=== PATIENT | male | born 1950 | race Caucasian/White ===

== ENCOUNTER 2017-05-25 08:37 | Day surgery (SDC) | payer MEDICARE, OTHER ==
[2017-05-25] MEDS ORDERED: ONDANSETRON HCL INJ/PF 4 MG/2 ML SDV ONE (09:14)
[2017-05-25] MEDS ORDERED: NALOXONE HCL INJ/PF 0.4 MG/1 ML SDV ONE (09:14)
[2017-05-25] MEDS ORDERED: DIPHENHYDRAMINE HCL 50 MG/ML VIAL ONE (09:14)
[2017-05-25] MEDS ORDERED: GLUCAGON,HUMAN RECOMB 1 MG INJ ONE (09:15)
[2017-05-25] MEDS ORDERED: EPINEPHRINE INJ 1 MG/10 ML DISP.SYRIN ONE (09:15)
[2017-05-25] MEDS ORDERED: FLUMAZENIL INJ 0.5 MG/5 ML VIAL ONE (09:15)
[2017-05-25] MEDS: MIDAZOLAM 2 MG/2 ML INJ ONE ×2 (09:26→09:32)
[2017-05-25] MEDS: FENTANYL CITRATE INJ/PF 100 MCG/2 ML AMPUL ONE ×2 (09:28→09:30)
--- NOTE | 2017-05-25 09:47 | Operative Report ---
Operative Report DATE OF SURGERY: 05/25/17 Operative Report: The risks, benefits and alternatives of the procedure including risks of bleeding, perforation requiring surgery are explained to the patient detail and informed consent was obtained. Patient was taken back to the endoscopy suite and placed in the left, lateral decubital position. Timeout was called. Conscious sedation medications administered. A rectal examination was done which did not reveal any masses, tears or fissures. An Olympus videoscope was inserted into the patient's rectum. Scope was then carefully advanced all the way to the cecum. The cecum was identified by the usual anatomical landmarks including the ileocecal valve as well as the appendiceal office. Photodocumentation is obtained. The scope was then sequentially pulled back via the rest segments of the colon including the ascending colon, hepatic flexure, transverse colon, splenic flexure, descending colon finding to the rectosigmoid portions of the colon. Retroflexion maneuver was performed. Prep is good. PREOPERATIVE DIAGNOSIS: Colorectal cancer screening. POSTOPERATIVE DIAGNOSIS: Small Polyp noted at the rectosigmoid junction removed via snare polypectomy and retrieved. Diverticulosis. Internal hemorrhoids OPERATION: Colonoscopy with snare polypectomy SURGEON: HOLLIE MCKENZIE ANESTHESIA: Moderate Sedation - 4 mg of Versed, 100 mcg of fentanyl. Conscious sedation monitoring time 30 minutes. TISSUE REMOVED OR ALTERED: Specimen retrieved as noted above COMPLICATIONS: None. ESTIMATED BLOOD LOSS: None. INTRAOPERATIVE FINDINGS: As described above. PROCEDURE: Patient tolerated the procedure well. No immediate postprocedure complications are noted. Patient discharged in good condition. Discharge date 05/25/2017. Discharge diet: Regular. Discharge activity: Regular. 2-3 week follow-up to discuss findings. Patient is instructed to call the office or proceed to the emergency room should there be any further problems or questions. We will wait on biopsies. 3-5 year surveillance.
[2017-05-25 10:54] VITALS: BP 108/62
== END 2017-05-25 10:50 | disposition home or self-care (01) ==
LOC: END 08:37
PROVIDERS: ATTEND Internal Medicine Gastroenterology
PROC: 0DBP8ZX Excision of Rectum, Via Natural or Artificial Opening Endoscopic, Diagnostic (ICD-10-PCS; 2017-05-25)
PROC: 0DBN8ZX Excision of Sigmoid Colon, Via Natural or Artificial Opening Endoscopic, Diagnostic (ICD-10-PCS; principal; 2017-05-25 09:00)
DX: Z12.11 Encounter for screening for malignant neoplasm of colon (principal); D12.7 Benign neoplasm of rectosigmoid junction; K57.30 Diverticulosis of large intestine without perforation or abscess without bleeding; K64.8 Other hemorrhoids; Z79.899 Other long term (current) drug therapy
CPT/HCPCS: 45385; 88305 ×2; J2250; J3010; J0171; J1200; J1610; J2310; J2405; J3490

== ENCOUNTER → 2017-12-29 | Outpatient (CLI) | payer MEDICARE ==
[2017-12-29 11:15] LABS: ALANINE AMINOTRANSFERASE 52 U/L (21-72); ALBUMIN 4.2 g/dL (3.5-5.0); ALKALINE PHOSPHATASE 79 U/L (38-126); ANION GAP 10 (5-19); ASPARTATE AMINO TRANSFERASE 30 U/L (17-59); BILIRUBIN,DIRECT 0.3 mg/dL (0.0-0.4); BILIRUBIN,TOTAL 0.6 mg/dL (0.2-1.3); BLOOD UREA NITROGEN 17 mg/dL (7-20); CARBON DIOXIDE 26 mmol/L (22-30); CHLORIDE 104 mmol/L (98-107); CHOLESTEROL 155.47 mg/dL (0-200); GLUCOSE 143 mg/dL (75-110); POTASSIUM 5.2 mmol/L (3.6-5.0); SODIUM 140.3 mmol/L (137-145); TOTAL PROTEIN 7.2 g/dL (6.3-8.2); TRIGLYCERIDES 259 mg/dL (<150)
[2017-12-29 11:25] LABS: DIRECT LDL 89 mg/dL (<100)
[2017-12-29 11:29] LABS: VLDL CHOLESTEROL 51.8 mg/dL (10-31)
== END ==
LOC: OD 09:59
PROVIDERS: ATTEND Internal Medicine Cardiovascular Disease
DX: E78.5 Hyperlipidemia, unspecified (principal); N18.3 Chronic kidney disease, stage 3 (moderate); Z79.899 Other long term (current) drug therapy
CPT/HCPCS: 36415; 80048; 80061; 80076

== ENCOUNTER → 2018-01-26 | Outpatient (CLI) | payer MEDICARE ==
--- NOTE | 2018-01-26 09:53 | RADIOLOGY REPORT (SQ) ---
EXAM DESCRIPTION: U/S ABDOMEN LIMITED W/O DOP COMPLETED DATE/TIME: 01/26/2018 9:44 am REASON FOR STUDY: R94.5 ABNORMAL RESULTS OF LIVER FUNCTION STUDIES E78.2 MIXED HYPERLIPIDEMIA R94.5 ABNORMAL RESULTS OF LIVER FUNCTION STUDIES COMPARISON: None. TECHNIQUE: Dynamic and static grayscale images acquired of the abdomen and recorded on PACS. Additio nal selected color Doppler and spectral images recorded. LIMITATIONS: None. FINDINGS: PANCREAS: No masses. No peripancreatic edema or fluid collections. LIVER: Echotexture is coarse with increased echogenicity consistent with fatty infiltration. LIVER VASCULATURE: Normal directional flow of the main portal vein and hepatic veins. GALLBLADDER: Gallstone(s). No pericholecystic fluid. No wall thickening. ULTRASOUND-DETECTED EARL'S SIGN: Negative. INTRAHEPATIC DUCTS AND COMMON DUCT: CBD and intrahepatic ducts normal caliber. No filling defects. INFERIOR VENA CAVA: Normal flow. AORTA: No aneurysm. RIGHT KIDNEY: Normal size. Normal echogenicity. No solid or suspicious masses. No hydronephrosis. No calcifications. PERITONEAL AND RIGHT PLEURAL SPACE: No ascites or effusions. OTHER: No other significant finding. IMPRESSION: GALLSTONES. FATTY INFILTRATION OF THE LIVER. OTHERWISE NORMAL RIGHT UPPER QUADRANT ULT RASOUND. TECHNICAL DOCUMENTATION: JOB ID: [id number] [employer]- All Rights Reserved Reading location - IP/workstation name: [email or web address]
== END ==
LOC: RAD 10:54
PROVIDERS: ATTEND Internal Medicine Cardiovascular Disease
DX: K80.80 Other cholelithiasis without obstruction (principal); K76.0 Fatty (change of) liver, not elsewhere classified
CPT/HCPCS: 76705

== ENCOUNTER → 2018-05-11 | Outpatient (CLI) | payer MEDICARE, OTHER ==
[2018-05-11 09:32] LABS: HEMOGLOBIN 15.5 g/dL (13.5-17.0); MEAN CORPUSCULAR HGB CONC 34.5 g/dL (32.0-36.0); MEAN CORPUSCULAR VOLUME 87 fl (80-97); PLATELET COUNT 207 10^3/uL (150-450); RED BLOOD COUNT 5.17 10^6/uL (4.35-5.55); RED CELL DISTRIBUTION WIDTH 15.1 % (11.5-14.0)
[2018-05-11 10:05] LABS: ALANINE AMINOTRANSFERASE 32 U/L (21-72); ALBUMIN 3.9 g/dL (3.5-5.0); ALKALINE PHOSPHATASE 83 U/L (38-126); ANION GAP 11 (5-19); ASPARTATE AMINO TRANSFERASE 20 U/L (17-59); BILIRUBIN,DIRECT 0.2 mg/dL (0.0-0.4); BILIRUBIN,TOTAL 0.6 mg/dL (0.2-1.3); BLOOD UREA NITROGEN 19 mg/dL (7-20); CALCIUM 9.8 mg/dL (8.4-10.2); CARBON DIOXIDE 26 mmol/L (22-30); CHLORIDE 106 mmol/L (98-107); CHOLESTEROL 114.94 mg/dL (0-200); GLUCOSE 108 mg/dL (75-110); POTASSIUM 4.5 mmol/L (3.6-5.0); SODIUM 142.8 mmol/L (137-145); TOTAL PROTEIN 6.8 g/dL (6.3-8.2); TRIGLYCERIDES 151 mg/dL (<150); URIC ACID 6.7 mg/dL (3.5-8.5)
[2018-05-11 10:11] LABS: FREE T4 (FREE THYROXINE) 1.25 ng/dL (0.78-2.19)
[2018-05-11 10:16] LABS: DIRECT LDL 59 mg/dL (<100)
[2018-05-11 10:23] LABS: VLDL CHOLESTEROL 30.2 mg/dL (10-31)
[2018-05-11 10:25] LABS: THYROID STIMULATING HORMONE 1.61 uIU/mL (0.47-4.68)
== END ==
LOC: OD 08:21
PROVIDERS: ATTEND Internal Medicine Cardiovascular Disease
DX: I10 Essential (primary) hypertension (principal); R07.9 Chest pain, unspecified; R94.5 Abnormal results of liver function studies; E78.2 Mixed hyperlipidemia; Z79.899 Other long term (current) drug therapy
CPT/HCPCS: 36415; 80048; 80061; 80076; 82010; 83735; 84439; 84443; 84550; 85027; 86141

== ENCOUNTER → 2018-08-12 | Outpatient (CLI) | payer MEDICARE, OTHER ==
[2018-08-12 11:06] LABS: ALANINE AMINOTRANSFERASE 24 U/L (21-72); ALBUMIN 4.3 g/dL (3.5-5.0); ALKALINE PHOSPHATASE 83 U/L (38-126); ANION GAP 13 (5-19); ASPARTATE AMINO TRANSFERASE 21 U/L (17-59); BILIRUBIN,DIRECT 0.3 mg/dL (0.0-0.4); BILIRUBIN,TOTAL 0.9 mg/dL (0.2-1.3); BLOOD UREA NITROGEN 18 mg/dL (7-20); CALCIUM 9.9 mg/dL (8.4-10.2); CARBON DIOXIDE 24 mmol/L (22-30); CHLORIDE 104 mmol/L (98-107); CHOLESTEROL 127.11 mg/dL (0-200); GLUCOSE 112 mg/dL (75-110); POTASSIUM 4.9 mmol/L (3.6-5.0); SODIUM 141.2 mmol/L (137-145); TOTAL PROTEIN 7.2 g/dL (6.3-8.2); TRIGLYCERIDES 141 mg/dL (<150)
[2018-08-12 11:17] LABS: DIRECT LDL 88 mg/dL (<100)
== END ==
LOC: OD 09:34
PROVIDERS: ATTEND Internal Medicine Cardiovascular Disease
DX: E78.2 Mixed hyperlipidemia (principal); E11.65 Type 2 diabetes mellitus with hyperglycemia; N18.3 Chronic kidney disease, stage 3 (moderate); Z79.899 Other long term (current) drug therapy
CPT/HCPCS: 36415; 80048; 80061; 80076

== ENCOUNTER → 2018-11-07 | Outpatient (CLI) | payer MEDICARE, OTHER ==
[2018-11-07 10:00] LABS: ALANINE AMINOTRANSFERASE 19 U/L (21-72); ALBUMIN 4.1 g/dL (3.5-5.0); ALKALINE PHOSPHATASE 82 U/L (38-126); ANION GAP 10 (5-19); ASPARTATE AMINO TRANSFERASE 17 U/L (17-59); BILIRUBIN,DIRECT 0.2 mg/dL (0.0-0.4); BILIRUBIN,TOTAL 0.5 mg/dL (0.2-1.3); BLOOD UREA NITROGEN 21 mg/dL (7-20); CARBON DIOXIDE 26 mmol/L (22-30); CHLORIDE 106 mmol/L (98-107); CHOLESTEROL 98.79 mg/dL (0-200); GLUCOSE 117 mg/dL (75-110); POTASSIUM 5.3 mmol/L (3.6-5.0); SODIUM 142.1 mmol/L (137-145); TOTAL PROTEIN 6.6 g/dL (6.3-8.2); TRIGLYCERIDES 136 mg/dL (<150)
[2018-11-07 10:11] LABS: DIRECT LDL 60 mg/dL (<100)
== END ==
LOC: OD 08:37
PROVIDERS: ATTEND Internal Medicine Cardiovascular Disease
DX: E11.65 Type 2 diabetes mellitus with hyperglycemia (principal); E78.2 Mixed hyperlipidemia
CPT/HCPCS: 36415; 80048; 80061; 80076

== ENCOUNTER → 2018-11-08 | Outpatient (CLI) | payer MEDICARE, OTHER ==
[2018-11-08 17:42] LABS: ANION GAP 9 (5-19); BLOOD UREA NITROGEN 24 mg/dL (7-20); CALCIUM 10.4 mg/dL (8.4-10.2); CARBON DIOXIDE 27 mmol/L (22-30); CHLORIDE 108 mmol/L (98-107); GLUCOSE 116 mg/dL (75-110); POTASSIUM 5.1 mmol/L (3.6-5.0); SODIUM 143.6 mmol/L (137-145)
== END ==
LOC: LAB 16:32
PROVIDERS: ATTEND Physician Assistant
DX: E87.5 Hyperkalemia (principal)
CPT/HCPCS: 36415; 80048

== ENCOUNTER → 2018-12-01 | Outpatient (CLI) | payer MEDICARE, OTHER ==
[2018-12-01 09:22] LABS: ANION GAP 10 (5-19); BLOOD UREA NITROGEN 20 mg/dL (7-20); CALCIUM 10.2 mg/dL (8.4-10.2); CARBON DIOXIDE 26 mmol/L (22-30); CHLORIDE 107 mmol/L (98-107); GLUCOSE 128 mg/dL (75-110); POTASSIUM 4.6 mmol/L (3.6-5.0); SODIUM 143.1 mmol/L (137-145)
== END ==
LOC: LAB 08:50
PROVIDERS: ATTEND Internal Medicine Cardiovascular Disease
DX: E87.5 Hyperkalemia (principal)
CPT/HCPCS: 36415; 80048

== ENCOUNTER → 2019-04-25 | Outpatient (CLI) | payer MEDICARE, OTHER ==
[2019-04-25 09:39] LABS: ANION GAP 9 (5-19); BLOOD UREA NITROGEN 18 mg/dL (7-20); CALCIUM 9.5 mg/dL (8.4-10.2); CARBON DIOXIDE 26 mmol/L (22-30); CHLORIDE 107 mmol/L (98-107); GLUCOSE 121 mg/dL (75-110); POTASSIUM 4.6 mmol/L (3.6-5.0)
== END ==
LOC: LAB 08:47
PROVIDERS: ATTEND Internal Medicine Cardiovascular Disease
DX: N18.3 Chronic kidney disease, stage 3 (moderate) (principal)
CPT/HCPCS: 36415; 80048

== ENCOUNTER → 2020-07-28 | Outpatient (CLI) | payer MEDICARE, OTHER ==
[2020-07-28 09:32] LABS: ALBUMIN 4.1 g/dL (3.5-5.0); ALKALINE PHOSPHATASE 81 U/L (38-126); ASPARTATE AMINO TRANSFERASE 21 U/L (17-59); BILIRUBIN,DIRECT 0.2 mg/dL (0.0-0.4); BILIRUBIN,TOTAL 0.8 mg/dL (0.2-1.3); CHOLESTEROL 110.62 mg/dL (0-200); TOTAL PROTEIN 6.2 g/dL (6.3-8.2); TRIGLYCERIDES 180 mg/dL (<150)
[2020-07-28 09:43] LABS: DIRECT LDL 61 mg/dL (<100)
[2020-07-28 16:51] LABS: ANION GAP 12 (5-19); BLOOD UREA NITROGEN 20 mg/dL (7-20); CALCIUM 9.8 mg/dL (8.4-10.2); CARBON DIOXIDE 21 mmol/L (22-30); CHLORIDE 106 mmol/L (98-107); GLUCOSE 138 mg/dL (75-110); POTASSIUM 4.6 mmol/L (3.6-5.0)
== END ==
LOC: OD 08:25
PROVIDERS: ATTEND Internal Medicine Cardiovascular Disease
DX: E78.2 Mixed hyperlipidemia (principal)
CPT/HCPCS: 36415; 80048; 80061; 80076

== ENCOUNTER 2020-08-13 13:09 | Emergency (ER) | payer MEDICARE, OTHER ==
--- NOTE | 2020-08-13 13:38 | ER Document Report ---
ED Medical Screen (RME) - General Chief Complaint: Chest Pain Stated Complaint: CHEST PAIN Time Seen by Provider: 08/13/20 13:35 Primary Care Provider: NICK HASTINGS MD [Primary Care Provider] - Follow up as needed Mode of Arrival: Ambulatory Information source: Patient Notes: HPI; 70-year-old male past medical history significant for hypertension presents emergency room complaining of shortness of breath with chest pain that has been intermittent for the past 2 weeks. Also complains of some lightheadedness. States shortness of breath is worse with exertion. Negative Covid test 1 week ago. States he saw his primary care physician a week ago who told him to just monitor his blood pressure. States he did have an EKG in the office but he does not know the results. Patient states that he noticed that his pulse has been running in the 30-40 range over the past week. Denies any other cardiac history. Denies any recent travel. PE: Alert and oriented x3. Mild distress noted. Lungs: Clear to auscultation without rales, rhonchi, wheezes. Heart bradycardic without murmurs, rubs, gallops. I have greeted and performed a rapid initial assessment of this patient. A comprehensive ED assessment and evaluation of the patient, analysis of test results and completion of the medical decision making process will be conducted by additional ED providers. I have specifically instructed the patient or family members with the patient to immediately return to any nursing staff should anything change in the patient's condition or with their chief complaint. TRAVEL OUTSIDE OF THE [place] IN LAST 30 DAYS: No - Related Data Allergies/Adverse Reactions: No Known Allergies Allergy (Verified 05/25/17 08:57) Past Medical History - Past Medical History Cardiac Medical History: Reports: Hx Hypertension Denies: Hx Coronary Artery Disease, Hx Heart Attack Pulmonary Medical History: Denies: Hx Asthma, Hx Bronchitis, Hx COPD, Hx Pneumonia Neurological Medical History: Denies: Hx Cerebrovascular Accident, Hx Seizures Musculoskeltal Medical History: Denies Hx Arthritis - Immunizations Hx Diphtheria, Pertussis, Tetanus Vaccination: - UNSURE Doctor's Discharge - Discharge Referrals: NICK HASTINGS MD [Primary Care Provider] - Follow up as needed
--- NOTE | 2020-08-13 14:15 | RADIOLOGY REPORT (SQ) ---
EXAM DESCRIPTION: CHEST SINGLE VIEW IMAGES COMPLETED DATE/TIME: 08/13/2020 1:54 pm REASON FOR STUDY: chest pain COMPARISON: None. EXAM PARAMETERS: NUMBER OF VIEWS: One view. TECHNIQUE: Single frontal radiographic view of the chest acquired. RADIATION DOSE: NA LIMITATIONS: None. FINDINGS: LUNGS AND PLEURA: No opacities, masses or pneumothorax. No pleural effusion. MEDIASTINUM AND HILAR STRUCTURES: No masses. Contour normal. HEART AND VASCULAR STRUCTURES: Heart normal in size. Normal vasculature. BONES: No acute findings. HARDWARE: None in the chest. OTHER: No other significant finding. IMPRESSION: NO ACUTE RADIOGRAPHIC FINDING IN THE CHEST. TECHNICAL DOCUMENTATION: JOB ID: [id number] [employer]- All Rights Reserved Reading location - IP/workstation name: [email or web address]
[2020-08-13] MEDS ORDERED: ASPIRIN 325 MG TABLET PO ONE (14:23)
--- NOTE | 2020-08-13 14:23 | ER Document Report ---
ED Cardiac - General Chief Complaint: Chest Pain Stated Complaint: CHEST PAIN Time Seen by Provider: 08/13/20 13:35 Primary Care Provider: NICK HASTINGS MD [Primary Care Provider] - Follow up as needed Mode of Arrival: Ambulatory Notes: HPI: 70-year-old male who presents today stating for 1 to 2 weeks he states minimal lightheadedness. He states it is mostly when he is standing up from a seated position or going up steps. Patient does state some intermittent left- sided 2 out of 10 maximum chest "discomfort" without radiation, aggravating relieving factors. No nausea, vomiting, shortness of breath, cough, fevers, calf pain or leg swelling. No history of coronary artery disease. Patient did see a margarine churn operator on 10 days ago, Dr. Hastings. ROS: See HPI All other review of systems reviewed and otherwise negative Reviewed vital signs and nursing note as charted by RN. PHYSICAL EXAM: CONSTITUTIONAL: Alert and oriented and responds appropriately to questions. Well-appearing; well-nourished HEAD: Normocephalic; atraumatic EYES: PERRL; Conjunctivae clear, sclerae non-icteric CARD: Bradycardic but regular; no murmurs; symmetric distal pulses RESP: Normal chest excursion without splinting or tachypnea; breath sounds clear and equal bilaterally ABD/GI: Normal bowel sounds; non-distended; soft, non-tender BACK: The back appears normal and is non-tender to palpation EXT: Normal ROM in all joints; non-tender to palpation; no edema SKIN: No acute lesions noted NEURO: CN 2-12 intact; 5/5 bilateral upper and lower extremity strength with sensation intact to light touch PSYCH: The patient's mood and manner are appropriate. Grooming and personal hygiene are appropriate. TRAVEL OUTSIDE OF THE [place] IN LAST 30 DAYS: No - Related Data Allergies/Adverse Reactions: No Known Allergies Allergy (Verified 08/13/20 13:52) Past Medical History - General Information source: Patient - Social History Smoking Status: Unknown if Ever Smoked Family History: Reviewed & Not Pertinent - Past Medical History Cardiac Medical History: Reports: Hx Hypertension Denies: Hx Coronary Artery Disease, Hx Heart Attack Pulmonary Medical History: Denies: Hx Asthma, Hx Bronchitis, Hx COPD, Hx Pneumonia Neurological Medical History: Denies: Hx Cerebrovascular Accident, Hx Seizures Musculoskeletal Medical History: Denies Hx Arthritis - Immunizations Hx Diphtheria, Pertussis, Tetanus Vaccination: - UNSURE Physical Exam - Vital signs Vitals: Temp Pulse Resp BP Pulse Ox 98.6 F 55 L 22 H 156/58 H 97 08/13/20 13:34 08/13/20 13:34 08/13/20 13:34 08/13/20 13:34 08/13/20 13:34 Course - Re-evaluation Re-evalutation: EKG shows a heart rate of 33, sinus bradycardia with a type II block. Is difficult to assess whether with Mobitz type I or type II given that it is due to 1. Right bundle branch block. No old EKG to compare. Given the history and physical with a stable blood pressure, we will place the patient on the monitor and place pads to the chest. We will provide aspirin. Awaiting cardiology consult callback as well as troponin levels. I will provide aspirin. No shortness of breath, calf pain, or leg swelling. I do believe PE and dissection to be unlikely. 08/13/20 14:23 I did speak to the margarine churn operator senior professional services consultant. We do not do pacemakers at this location and he does agree that the patient needs to be transferred. I will call cardiac connections at [facility] when labs have returned. 08/13/20 15:03 X-ray of the chest, EKG, and troponin as recorded. I have called over to [facility] for transfer. - Vital Signs Vital signs: Temp Pulse Resp BP Pulse Ox 98.6 F 55 L 16 156/69 H 100 08/13/20 13:34 08/13/20 13:34 08/13/20 15:00 08/13/20 14:59 08/13/20 15:00 - Laboratory Result Diagrams: 08/13/20 14:00 08/13/20 14:00 Laboratory results interpreted by me: 08/13/20 08/13/20 14:00 14:00 RDW 15.4 H Chloride 108 H Carbon Dioxide 21 L BUN 24 H Creatinine 1.35 H Est GFR (MDRD) Non-Af 53 L Glucose 116 H Creatine Kinase 31 L Discharge - Discharge Clinical Impression: Second degree heart block by electrocardiogram (ECG), Lightheadedness, Precordial chest pain Condition: Fair Disposition: Replaced By [facility] Referrals: NICK HASTINGS MD [Primary Care Provider] - Follow up as needed
[2020-08-13 14:25] LABS: ABSOLUTE BASOPHILS # (AUTO) 0.1 10^3/uL (0.0-0.2); ABSOLUTE EOSINOPHILS # (AUTO) 0.1 10^3/uL (0.0-0.6); ABSOLUTE LYMPHOCYTES (AUTO) 2.1 10^3/uL (0.5-4.7); ABSOLUTE MONOCYTES (AUTO) 0.7 10^3/uL (0.1-1.4); ABSOLUTE NEUT (AUTO) 7.4 10^3/uL (1.7-8.2); BASOPHILS % (AUTO) 0.6 % (0-2); EOSINOPHILS % (AUTO) 1.1 % (0-6); HEMATOCRIT 45.8 % (37.9-51.0); LYMPHOCYTES % (AUTO) 19.8 % (13-45); MEAN CORPUSCULAR HEMOGLOBIN 30.3 pg (27.0-33.4); MEAN CORPUSCULAR VOLUME 87 fl (80-97); PLATELET COUNT 176 10^3/uL (150-450); RED BLOOD COUNT 5.29 10^6/uL (4.35-5.55); RED CELL DISTRIBUTION WIDTH 15.4 % (11.5-14.0); SEGMENTED NEUTROPHILS % (AUTO) 71.5 % (42-78); TOTAL CELLS COUNTED % (AUTO) 100 %; WHITE BLOOD COUNT 10.4 10^3/uL (4.0-10.5)
[2020-08-13 14:42] LABS: ALBUMIN 4.4 g/dL (3.5-5.0); ALKALINE PHOSPHATASE 85 U/L (38-126); ANION GAP 13 (5-19); ASPARTATE AMINO TRANSFERASE 20 U/L (17-59); BILIRUBIN,TOTAL 0.6 mg/dL (0.2-1.3); BLOOD UREA NITROGEN 24 mg/dL (7-20); CARBON DIOXIDE 21 mmol/L (22-30); CHLORIDE 108 mmol/L (98-107); CREATINE KINASE 31 U/L (55-170); GLUCOSE 116 mg/dL (75-110); POTASSIUM 4.5 mmol/L (3.6-5.0); TOTAL PROTEIN 7.4 g/dL (6.3-8.2)
[2020-08-13 14:54] LABS: CREATINE KINASE MB 1.61 ng/mL (<4.55)
[2020-08-13 14:55] LABS: TROPONIN I < 0.012 ng/mL
--- NOTE | 2020-08-13 17:49 | EKG REPORT ---
SEVERITY:- ABNORMAL ECG - HIGH GRADE AV BLOCK 3:1 RIGHT BUNDLE BRANCH BLOCK : Confirmed by: Alexandre Pena 13-Aug-2020 17:47:52
--- NOTE | 2020-08-14 00:56 | ER Document Report ---
Doctor's Note Notes: 08/14/20 00:54 Called into evaluate patient. Evidently patient is awaiting transfer to [facility] for pacemaker placement. He has a second-degree heart block. Monitor showed patient's heart rate to be 28, blood pressure 144/55. I went into evaluate the patient. He has had some chest pain that has been stable for the last few weeks, not better or worse. He denies any dizziness. He states that he has been having heart rates this low intermittently for some time. I explained to the patient that I wanted to keep pacer pads in place. I did not want him to stand unassisted at any point during his stay in the ER. He voiced understanding. He was given the call button, told to bring out if any new symptoms occurred. He voiced understanding. We did reach out to [facility], who state they are still awaiting a bed assignment.
[2020-08-14] MEDS ORDERED: NORMAL SALINE 1000 ML 1,000 ML IV ONE (01:08)
[2020-08-14 01:46] LABS: ALBUMIN 3.5 g/dL (3.5-5.0); ALKALINE PHOSPHATASE 71 U/L (38-126); ANION GAP 11 (5-19); ASPARTATE AMINO TRANSFERASE 18 U/L (17-59); BILIRUBIN,TOTAL 0.9 mg/dL (0.2-1.3); BLOOD UREA NITROGEN 21 mg/dL (7-20); CALCIUM 9.2 mg/dL (8.4-10.2); CARBON DIOXIDE 17 mmol/L (22-30); CHLORIDE 111 mmol/L (98-107); GLUCOSE 103 mg/dL (75-110); POTASSIUM 4.1 mmol/L (3.6-5.0); TOTAL PROTEIN 6.2 g/dL (6.3-8.2)
[2020-08-14 08:39] VITALS: BP 143/55
--- NOTE | 2020-08-14 10:25 | ER Document Report ---
Doctor's Note Notes: 08/14/20 10:23 This MD was just informed by nursing that the [facility] helicopter crew will be landing momentarily to transfer the patient to [facility]. This MD went into the patient's room to check on the patient prior to transfer. Patient is awake alert and oriented x3, pleasant appreciative of care at this facility, appears to be in no acute distress and appears stable for transfer.
--- OUTSIDE RECORDS SUMMARY | 2020-08-15 14:40 | XMS REPORT ---
:1950 [facility] [address] [place] [address] Care Team Providers Name Role Phone Mirta Attending Clinician Unavailable Allergies, Adverse Reactions, Alerts This patient has no known allergies or adverse reactions. Medications Ordered Filled Start Stop Current Ordering Indication Dosage Frequency Signature Comments Components Medication Medication Date Date Medication? Clinician (SIG) Name Name lisinopril No lisinopril 20 mg 20 mg tablet tablet metformin No metformin ER 500 mg ER 500 mg tablet,exte tablet,ext nded ended release 24 release 24 hr hr atorvastati No atorvastat n 80 mg in 80 mg tablet tablet lisinopril No lisinopril 10 mg 10 mg tablet tablet Problems This patient has no known problems. Procedures Procedure Date / Time Performed Performing Clinician Chery freitas OFFICE/OUTPATIENT VISIT EST 2017-06-09 16:15:00 Results Test Description Test Time Test Comments Text Results Atomic Results Result Comments SARS coronavirus 2 RNA [Presence] in Respiratory speci men by 2020-07-31 00:00:00 GWEN with probe detection Test Item Value Reference Range Comments SARS coronavirus 2 RNA [Presence] in Respiratory specimen no t detected not detected by GWEN with probe detection (test code = 94495-0) first test? (test code = first test?) unknown employed in healthcare? (test code = employed in unknown healthcare?) symptomatic defined by cdc? (test code = symptomatic yes defined by cdc?) Illness or injury onset date and time (test code = 07/27/2020 88022-9) Patient was hospitalized because of this condition (test no code = 67430-0) ICU? (test code = ICU?) no resident in congregate care setting? 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 Family Medicine [address] [facility] Medicine HEATING [employer]ING [employer] ENGINEER-C: [address] [address] [place] [address], Ph. 2017-06-09 2017-06-09 Outpatient [facility] Michael freitas [id number] 16:15:00 16:15:00 Children [id number] s [id number] and [id number] [facility] Immunizations Ordered Immunization Filled Immunization Date Status Commen ts Refusal Reason Name Name influenza, 2020-06-06 Completed injectable, 00:00:00 quadrivalent influenza, 2019-08-01 Completed injectable, 00:00:00 quadrivalent Social History Smoking Status Start Date Stop Date Never Smoker Vital Signs Vital Name Observation Time Observation Value Comments BP Diastolic 2020-07-30 00:00:00 76 mm[Hg] Height 2020-07-30 00:00:00 70 [in_i] BMI (Body Mass Index) 2020-07-30 00:00:00 28 kg/m2 BP Systolic 2020-07-30 00:00:00 122 mm[Hg] Body Weight 2020-07-30 00:00:00 195 [lb_av] Hospital Discharge Instructions 1. Diarrhea COVID-19 RNA (SARS-CoV-2), QL, tomography technologist-PCR, respiratory specimen rapid SARS CoV 2 IgG + IgM Ab, QL IA, serum or plasma diarrhea: care instructions Discussion Note Issues concerning treatment and diagnosis were discussed with the patient and/or family member. There are no barriers to understanding the plan of care. Explanation was well-received by the patient and/or family, who then verbalized understanding. If a referral or imaging was ordered pt was instructed to expect contact from the specialist, imaging facility, or our office within 2 weeks and to call here if they have notreceived a call in this timeframe. Patient was instructed that if symptoms persist RTC.
== END 2020-08-14 10:30 | disposition short-term general hospital (02) ==
LOC: ER 13:09
DX: I44.1 Atrioventricular block, second degree (principal); I45.10 Unspecified right bundle-branch block; R07.2 Precordial pain; R00.1 Bradycardia, unspecified; R42 Dizziness and giddiness; I10 Essential (primary) hypertension; Z20.828 Contact with and (suspected) exposure to other viral communicable diseases
CPT/HCPCS: 93005; 99285; 96360; 96361; 36415; 82553; 82550; 85025; 80053; 84484; 71045; 93010; U0003; J7030; A9270; C9803; 87635